=== PATIENT | male | born 1995 | race Caucasian/White ===

== ENCOUNTER 2024-01-31 16:15 | Emergency (ER) | payer OTHER ==
[2024-01-31 16:19] VITALS: TEMP 98.1
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
[2024-01-31] MEDS: HYDROcodone/APAP 7.5-325MG 1 EACH TAB PO ONE (19:01)
[2024-01-31] MEDS: AMPICILLIN-SULBACTAM 3 GM in SODIUM CHLORIDE 0.9% 100 ML IVPB STA (19:02)
[2024-01-31] MEDS: ACET/COD 300 MG/30 MG STARTER PACK 6 TAB BTL PO STA (19:03)
[2024-01-31 20:54] VITALS: BP 163/104; PULSE 116; RESP 18
== END 2024-01-31 20:55 | disposition home or self-care (01) ==
LOC: EC 16:15
CPT/HCPCS: 70450; 70486; 72125; 96365; 96366; 99284

== ENCOUNTER → 2024-02-05 | Outpatient (CLI) | payer OTHER ==
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
== END | disposition home or self-care (01) ==
LOC: RADXRMAIN 15:09
PROVIDERS: ATTEND Emergency Medicine
DX: S20.211A Contusion of right front wall of thorax, initial encounter (principal)
CPT/HCPCS: 71046